=== PATIENT | female | born 1985 | race Two or more races ===

== ENCOUNTER 2022-02-21 02:52 | Emergency (ER) | payer SELFPAY ==
[~2022-02-21] VITALS: Ht 162.6 cm; Wt 59.0 kg
[2022-02-21 02:53] VITALS: BP 118/78
[2022-02-21 03:48] LABS: CHLORIDE 103 mEq/L (98-107)
[2022-02-21 04:12] LABS: B-HCG QUANTITATIVE 84871 mIU/mL (<3)
[2022-02-21 04:15] LABS: BASOPHILS % 0.5 % (0.0-2.0); HEMATOCRIT. 34.4 % (36.0-48.0); HEMOGLOBIN. 11.9 g/dL (12.0-16.0); LYMPHOCYTES % 25.8 % (20.0-50.0); MEAN CORPUSCULAR HEMOGLOBIN 30.4 pg (28.0-32.0); MEAN CORPUSCULAR VOLUME 87.6 fL (81.0-99.0); MEAN PLATELET VOLUME 7.7 fl (7.4-10.4); MONOCYTES % 4.7 % (2.0-8.0); PLATELET 261 x1000/uL (130-400); RED BLOOD CELL COUNT 3.93 mill/uL (4.2-5.4); RED CELL DISTRIBUTION WIDTH 12.7 % (11.6-14.6)
== END 2022-02-21 03:58 | disposition left against medical advice (07) ==
LOC: ER 03:18 → EDBD 03:18 → ER 03:58
DX: O20.9 Hemorrhage in early pregnancy, unspecified (principal); Z3A.10 10 weeks gestation of pregnancy
CPT/HCPCS: 36415; 80053; 84702; 85025; 86850; 86900; 99283